=== PATIENT | male | born 1965 | race Caucasian/White ===

== ENCOUNTER 2018-04-04 20:16 | Emergency (ER) | payer OTHER ==
[~2018-04-04] VITALS: Ht 180.3 cm; Wt 117.9 kg
[~2018-04-04 20:16] MED LIST: AMITRIPTYLINE H25 M2 PO; ASPIRIN EC325 M2 PO; ATORVASTATIN CA10 M1 PO; DOXYCYCLINE HY100 M4 PO; LISINOPRIL10 M1 PO; METFORMIN HCL500 M4 PO; MOTRIN 600 MG600 MG PO; MULTI-DAY VITA1 EACH PO; SEA-OMEGA 50 C1 EACH PO
--- NOTE | 2018-04-04 21:27 | ED UPPER/LOWER EXTREMITY COMPL ---
History of Present Illness General Chief Complaint: Foot or Ankle Injury Stated Complaint: "TWISTED L KNEE AND ANKLE" PER PT Source: patient Exam Limitations: no limitations Vital Signs & Intake/Output Vital Signs & Intake/Output Vital Signs Date Time Temp Pulse Resp B/P B/P Pulse O2 O2 Flow FiO2 Mean Ox Delivery Rate 04/04 2039 99.1 107 18 123/73 96 Room Air Allergies Coded Allergies: NO KNOWN ALLERGIES (03/03/15) Reconcile Medications Amitriptyline HCl 25 MG TABLET 1 TAB PO QPM HEADACHES (Reported) Aspirin (Ecotrin*) 325 MG TABLET.DR 2 TAB PO QAM HEART/BLOOD (Reported) Atorvastatin Calcium 10 MG TABLET 1 TAB PO DAILY CHOLESTEROL (Reported) Doxycycline Hyclate 100 MG TABLET 1 TAB PO BID FEVER/TICK BITE Fish Oil (Sea-[place] 50 Capsule) (Unknown Strength) CAPSULE (Unknown Dose) PO DAILY SUPPLEMENT (Reported) Lisinopril 10 MG TABLET 1 TAB PO DAILY BP (Reported) Metformin HCl (Metformin HCl ER) 500 MG TAB.ER.24H 2 TAB PO DAILY DIABETES ( Reported) Multivitamin (Multi-Day Vitamins) 1 EACH TABLET 1 TAB PO DAILY SUPPLEMENT ( Reported) Triage Note: PT TO ER C/C LEFT KNEE PAIN AND LEFT ANKLE PAIN S/P TRIP AND FALL THIS AFTERNOON. Triage Nurses Notes Reviewed? 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
--- NOTE | 2018-04-04 21:28 | ED ANKLE/FOOT INJURY COMPLAINT ---
History of Present Illness General Chief Complaint: Foot or Ankle Injury Stated Complaint: "TWISTED L KNEE AND ANKLE" PER PT Source: patient, family Exam Limitations: no limitations Vital Signs & Intake/Output Vital Signs & Intake/Output Vital Signs Date Time Temp Pulse Resp B/P B/P Pulse O2 O2 Flow FiO2 Mean Ox Delivery Rate 04/04 2232 98.2 104 18 134/65 97 Room Air 04/04 2039 99.1 107 18 123/73 96 Room Air Allergies Coded Allergies: NO KNOWN ALLERGIES (03/03/15) Reconcile Medications Amitriptyline HCl 25 MG TABLET 1 TAB PO QPM HEADACHES (Reported) Aspirin (Ecotrin*) 325 MG TABLET.DR 2 TAB PO QAM HEART/BLOOD (Reported) Atorvastatin Calcium 10 MG TABLET 1 TAB PO DAILY CHOLESTEROL (Reported) Doxycycline Hyclate 100 MG TABLET 1 TAB PO BID FEVER/TICK BITE Fish Oil (Sea[place] 50 Capsule) (Unknown Strength) CAPSULE (Unknown Dose) PO DAILY SUPPLEMENT (Reported) Lisinopril 10 MG TABLET 1 TAB PO DAILY BP (Reported) Metformin HCl (Metformin HCl ER) 500 MG TAB.ER.24H 2 TAB PO DAILY DIABETES ( Reported) Multivitamin (Multi-Day Vitamins) 1 EACH TABLET 1 TAB PO DAILY SUPPLEMENT ( Reported) Triage Note: PT TO ER C/C LEFT KNEE PAIN AND LEFT ANKLE PAIN S/P TRIP AND FALL THIS AFTERNOON. Triage Nurses Notes Reviewed? yes HPI: 52M HTN, T2DM, TBI presenting with left knee and ankle pain. Was walking, slipped, tried to catch himself, and twisted his left knee and ankle. Had left ankle pain that became severe after with lateral pain and swelling. Able to bear weight but with significant pain. Has mild lateral knee pain. Did not fall, lose consciousness, or hit his head. Has full sensation in the leg, ROM limited by pain. Past History Travel History Traveled to [place] past 21 day No Medical History Any Pertinent Medical History? 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 No Review of Systems Review of Systems Constitutional: Reports: no symptoms. EENTM: Reports: no symptoms. Respiratory: Reports: no symptoms. Cardiovascular: Reports: no symptoms. GI: Reports: no symptoms. Genitourinary: Reports: no symptoms. Musculoskeletal: Reports: no symptoms. Skin: Reports: no symptoms. Neurological/Psychological: Reports: no symptoms. Hematologic/Endocrine: Reports: no symptoms. Immunologic/Allergic: Reports: no symptoms. All Other Systems: Reviewed and Negative Physical Exam Physical Exam General Appearance: well developed/nourished, mild distress Head: atraumatic, normal appearance Eyes: Bilateral: normal appearance. Ears, Nose, Throat: normal ENT inspection, hearing grossly normal Neck: normal inspection, full range of motion Cardiovascular/Respiratory: normal breath sounds, normal peripheral pulses Back: normal inspection, normal range of motion Leg/Knee/Thigh Left: normal range of motion, normal inspection Leg/Knee/Thigh Right: normal range of motion, normal inspection Ankle Left: lateral edema and tenderness, sensation intact to foot, dorsalis pedis intact Ankle Right: normal inspection, normal range of motion Foot Left: normal inspection, normal range of motion Foot Right: normal inspection, normal range of motion Skin: intact, normal color, warm/dry Progress Differential Diagnosis: fracture, dislocation, sprain, contusion Plan of Care: Orders Procedure Date/time Status Durable Medical Equipment 04/04 2215 Active Durable Medical Equipment 04/04 2209 Active Diagnostic Imaging: Viewed by Me: Radiology Read. Discussed w/RAD: Radiology Read. Radiology Impression: PATIENT: JESSIE MCKNIGHT PRESENT AGE: 52 PATIENT ACCOUNT NO: [id number] : 66 LOCATION: [facility] ORDERING PHYSICIAN: Jadon Mcnally MD SERVICE DATE: 04/04/18 EXAM TYPE: RAD - XRY-ANKLE 3 OR MORE VIEWS L; XRY-FOOT COMPLETE, LEFT EXAMINATION: LEFT FOOT. CLINICAL INFORMATION: Fall. COMPARISON: None TECHNIQUE: 3 views. FINDINGS: No fracture. No dislocation. No focal bone lesion or periosteal reaction. There is mild joint narrowing of the first metatarsal phalangeal joint with small spur of the metatarsal head. There is a small plantar calcaneal spur. There is a spur at the dorsum of the talar neck at the talonavicular joint. There is a corticated 5 mm osseous density at this joint space at the dorsum of the foot which is chronic. IMPRESSION: No acute abnormality of the foot. DICTATED BY: Yobani Valentine MD DATE/TIME DICTATED:2149 ACCOUNTS PAYABLE ASSISTANT:YUE DATE/TIME TRANSCRIBED:04/04/182149 CONFIDENTIAL, DO NOT COPY WITHOUT APPROPRIATE AUTHORIZATION. <Electronically signed in Other Vendor System> SIGNED BY: Yobani Valentine MD 04/04/182155, PATIENT: JESSIE MCKNIGHT PRESENT AGE: 52 PATIENT ACCOUNT NO: [id number] : 66 LOCATION: [facility] ORDERING PHYSICIAN: Jadon Mcnally MD SERVICE DATE: 04/04/18 EXAM TYPE: RAD - XRY-KNEE, LEFT EXAMINATION: XR KNEE, LEFT CLINICAL INFORMATION: Fall rule out fracture. COMPARISON: None available at the time of this dictation. TECHNIQUE: Frontal lateral oblique and crosstable lateral. FINDINGS: BONES: No fracture or dislocation is present. Bipartite patella unchanged JOINTS: Narrowing of joint spaces and developed small osteophytes suggests the DJD. SOFT TISSUE: Normal IMPRESSION: No fracture. Chronic changes as above, DJD. DICTATED BY: Missy Granda MD DATE/TIME DICTATED:04/04/182149 ACCOUNTS PAYABLE ASSISTANT:YUE DATE/TIME TRANSCRIBED:04/04/182149 CONFIDENTIAL, DO NOT COPY WITHOUT APPROPRIATE AUTHORIZATION. <Electronically signed in Other Vendor System> SIGNED BY: Missy Granda MD 04/04/182155 Departure Departure Disposition: HOME OR SELF CARE Condition: Stable Clinical Impression Primary Impression: Left ankle sprain Qualifiers: Encounter type: initial encounter Involved ligament of ankle: unspecified ligament Qualified Code: S93.402A - Sprain of unspecified ligament of left ankle, initial encounter Referrals: Kitty COOPER,Devendra York (PCP/Family) Jefe COOPER,Blake Mccarthy Additional Instructions: Follow up with the orthopedist provided. Keep your weight off of the leg. Keep your leg elevated. You can use an yaw bandage for compression, ice for swelling , Motrin for pain. Return to ER if you have numbness, weakness, discoloration, or any other new or worsening symptoms. Departure Forms: Customer Survey General Discharge Information
--- NOTE | 2018-04-04 21:56 | RADIOLOGY REPORT ---
EXAMINATION: LEFT FOOT. CLINICAL INFORMATION: Fall. COMPARISON: None TECHNIQUE: 3 views. FINDINGS: No fracture. No dislocation. No focal bone lesion or periosteal reaction. There is mild joint narrowing of the first metatarsal phalangeal joint with small spur of the metatarsal head. There is a small plantar calcaneal spur. There is a spur at the dorsum of the talar neck at the talonavicular joint. There is a corticated 5 mm osseous density at this joint space at the dorsum of the foot which is chronic. IMPRESSION: No acute abnormality of the foot.
--- NOTE | 2018-04-04 21:56 | RADIOLOGY REPORT ---
EXAMINATION: XR KNEE, LEFT CLINICAL INFORMATION: Fall rule out fracture. COMPARISON: None available at the time of this dictation. TECHNIQUE: Frontal lateral oblique and crosstable lateral. FINDINGS: BONES: No fracture or dislocation is present. Bipartite patella unchanged JOINTS: Narrowing of joint spaces and developed small osteophytes suggests the DJD. SOFT TISSUE: Normal IMPRESSION: No fracture. Chronic changes as above, DJD.
[2018-04-04 22:32] VITALS: BP 134/65
== END 2018-04-04 22:53 ==
LOC: ERH 20:16
DX: S93.402A Sprain of unspecified ligament of left ankle, initial encounter (principal); M25.562 Pain in left knee; X50.9XXA Other and unspecified overexertion or strenuous movements or postures, initial encounter; Y93.01 Activity, walking, marching and hiking
CPT/HCPCS: 73560-LT; 73610-LT; 73630-LT; 96372; J1885